=== PATIENT | male | born 1975 | race Caucasian/White ===

== ENCOUNTER 2016-11-07 12:43 | Emergency (ER) | payer MEDICAID ==
[2016-11-07] MEDS ORDERED: SODIUM CHLORIDE 0.9% 1,000 ML ONE (13:31)
== END 2016-11-07 14:44 | disposition home or self-care (01) ==
LOC: ER 12:43
DX: J20.9 Acute bronchitis, unspecified (principal); F17.210 Nicotine dependence, cigarettes, uncomplicated
CPT/HCPCS: 36415; 71020; 80048; 81003; 82553; 82947; 84439; 84443; 84484; 85025; 87804; 93005; 96360